=== PATIENT | male | born 1990 | race Caucasian/White ===

== ENCOUNTER 2025-01-04 18:41 | Inpatient (IN) | payer BC, SELFPAY ==
[2025-01-04 18:47] VITALS: BP 127/81; PULSE 154; RESP 14; TEMP 36.9; O2SAT 98; BMI 22.5
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
[2025-01-04] MEDS: diphenhydrAMINE HCL 50 MG/ML VIAL IM (19:00)
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
--- NOTE | 2025-01-04 19:06 | PC.NURSE ---
patient began to escalate, yelling at security, swearing. patient began to speak to instrument processing tech who told patient that his behavior needed to stop and he could leave sooner, patient then became irritated with RN and security about what tech said when patient was told he needed to be medically cleared prior to speaking to crisis. patient then educated that RN should be giving patient direct information regarding plan of care, patient then agreeable and asked for everyone in the room to get in trouble and be sued. patient then escalated and needed four point restraints and IM medications per NOV. patient IM'd by this RN and Mell. patient remains to be uncooperative at this time, sexually inappropriate with staff. has jose antonio 1:1
--- NOTE | 2025-01-04 19:13 | PC.NURSE ---
patient stated to this RN that he was pulled over and brought here 2 hours prior, patient has no prior record of being at this hospital.
[2025-01-04] MEDS: Nicotine 21 MG PATCH.TD24 TRANSDERMA (19:33)
--- NOTE | 2025-01-04 19:43 | PC.NURSE ---
this rn assumed care of pt at 1900, pt being combative, swearing at staff, being inappropriate towards staff making statement whats stopping me from leaving here and killing myself . pt placed in restraints and given IM medications. pt given nicotine patch per request. pt changed into green, sitter remains at bedside.
--- NOTE | 2025-01-04 19:50 | PC.NURSE ---
all 4 point restraints removed at this time. pt appears to be sleeping, respirations even and unlabored.
[2025-01-04] MEDS: LORazepam 2 MG/ML VIAL 4 MG IM (19:54)
[2025-01-04] MEDS: Haloperidol Lactate 5 MG/ML VIAL 10 MG IM (19:54)
--- NOTE | 2025-01-04 19:56 | PC.NURSE ---
pt only received 2mg ativan and 5mg of haldol, per pharmacy doc in nov at this time.
[2025-01-04 20:43] VITALS: BP 96/46; PULSE 89; RESP 18; O2SAT 94
[2025-01-04 21:02] LABS: MANUAL DIFF FLAG NO
[2025-01-04 21:03] LABS: Basophils Percent Auto 0.5 % (0-2); Eosinophils Percent Auto 0.2 % (0-4); Hemoglobin 14.4 g/dl (14.0-18.0); Imm Gran Abs Auto 0.02 X10*3/uL (0.00-0.03); Imm Gran Pct Auto 0.2 % (0.0-0.4); Lymphocytes Absolute Auto 1.9 X10*3/uL (1.2-4.9); Lymphocytes Percent Auto 22.7 % (20-40); Mean Corpuscular HGB Conc 35.1 g/dl (31.0-36.0); Mean Corpuscular Volume 82.5 fL (80.0-98.0); Mean Platelet Volume 9.3 fL (9.4-12.4); Monocytes Absolute Auto 0.7 X10*3/uL (0.1-1.2); Monocytes Percent Auto 7.9 % (2-11); Neutrophils Absolute Auto 5.8 x10*3/uL (2.0-8.3); Neutrophils Percent Auto 68.5 % (45-73); Platelet Count 250 X10*3/uL (160-400); Red Blood Count 4.97 X10*6/uL (4.60-5.80); Red Cell Distribution Width 12.6 % (11.0-16.0); White Blood Count 8.5 X10*3/uL (4.8-10.8)
--- NOTE | 2025-01-04 21:13 | PC.NURSE ---
pt remains resting in stretcher, respirations even and unlabored.
[2025-01-04 21:17] LABS: Alanine Aminotransferase 23 U/L (0-40); Albumin Level 4.6 g/dL (3.5-5.0); Alkaline Phosphatase 40 U/L (39-117); Anion Gap 13 (12-20); Aspartate Amino Transferase 31 U/L (5-37); Bilirubin Total 0.7 mg/dL (0.0-1.0); Blood Urea Nitrogen 11 mg/dL (9-16); Carbon Dioxide 27 mmol/L (22-29); Chloride 110 mmol/L (96-108); Creatinine Clr Calc Pharmacy 120.5; Estimated Glomerular Filt Rate > 60; Ethanol 222 mg/dL; Glucose Random 94 mg/dL (60-115); Potassium 4.2 mmol/L (3.3-5.1); Sodium 146 mmol/L (135-145); Total Protein 7.1 g/dL (6.5-8.0)
--- NOTE | 2025-01-04 23:50 | PC.NURSE ---
pt awake and ambulatory to bathroom at this time, attempting to obtain urine sample.
[2025-01-05 00:11] LABS: Amphetamine Screen Urine Not Detected (Not Detect); Barbiturates, Urine Not Detected (Not Detect); Benzodiazepines Screen Urine Not Detected (Not Detect); Buprenorphine Scr Not Detected (Not Detect); Cannabinoid Screen Urine POSITIVE (Not Detect); Cocaine Screen Urine Not Detected (Not Detect); Fentanyl, urine Not Detected (Not Detect); Methadone Screen, Urine Not Detected (Not Detect); Opiate Screen Urine Not Detected (Not Detect); Oxycodone Screen Urine Not Detected (Not Detect); Phencyclidine Screen Urine Not Detected (Not Detect)
[2025-01-05 05:23] VITALS: BP 116/71; PULSE 83; RESP 16; TEMP 36.9; O2SAT 98
--- NOTE | 2025-01-05 05:42 | PC.NURSE ---
pt belongings list not completed, pt belongings found in [facility], pt list made based off what was found in bags in [facility].
--- NOTE | 2025-01-05 08:41 | PC.NURSE ---
patient awake, provided with breakfast. ambulated to the bathroom independently with steady gait. patient states he does not remember any events from last night and that he has been having increased stress at home. awaiting care team consult, patient currently denies si/hi. patient observer remains in place for patient safety.
--- NOTE | 2025-01-05 08:50 | PC.NURSE ---
CARE team at bedside
--- NOTE | 2025-01-05 09:24 | PC.NURSE ---
pts Eddi cam
[2025-01-05] MEDS: Nicotine 21 MG PATCH.TD24 TRANSDERMA (09:51)
[2025-01-05] MEDS: LORazepam 1 MG TABLET PO ×3 (10:13→19:39)
[2025-01-05] MEDS: Nicotine Polacrilex 2 MG GUM BUCCAL ×2 (15:16→19:42)
[2025-01-05 15:27] VITALS: BP 132/73; PULSE 73; RESP 16; TEMP 37; O2SAT 97
--- NOTE | 2025-01-05 17:41 | MHC.EDTECH ---
This tech removed lunch tray from patients room. This tech noticed patient did not eat lunch, patient also did not eat breakfast. This tech made RN aware patient hasn't eaten today.
--- NOTE | 2025-01-05 17:45 | PHA.MEDREC ---
Pharmacy Consult ? Medication Reconciliation Pharmacy has completed the medication reconciliation. Reviewed med rec done by nursing.
--- NOTE | 2025-01-06 | ECG_ITS ---
Test Reason : r/o prolonged qt Blood Pressure : */* mmHG Vent. Rate : 78 BPM Atrial Rate : 78 BPM P-R Int : 164 ms QRS Dur : 96 ms QT Int : 362 ms P-R-T Axes : 54 77 57 degrees QTcB Int : 412 ms Normal sinus rhythm Normal ECG No previous ECGs available Referred By: Guido Becerra Electronically Signed By: Christian Juarez
[2025-01-06] MEDS: LORazepam 1 MG TABLET PO ×3 (03:22→16:30)
[2025-01-06 04:30] VITALS: BP 140/93; PULSE 59; RESP 16; TEMP 36.9; O2SAT 100
--- NOTE | 2025-01-06 04:56 | PC.NURSE ---
Patient slept through the night, reports anxiety Ativan 1 mg PO administered x2 with + effect, meds and meals compliant, 15 minutes safety check, no behavior and safety concerns at this time, disposition by care team is section 12 inpatient bed search, will continue to monitor
[2025-01-06] MEDS: Nicotine 21 MG PATCH.TD24 TRANSDERMA (05:53)
--- NOTE | 2025-01-06 07:09 | PC.NURSE ---
Assumed care of pt at 0645. Pt appears to be sleeping. Respirations even and unlabored. Continue plan of care for inpatient bed search.
[2025-01-06] MEDS: Nicotine Polacrilex 2 MG GUM BUCCAL ×2 (07:56→12:20)
[2025-01-06 08:26] VITALS: BP 148/100; PULSE 80; RESP 18; TEMP 36.8; O2SAT 98
[2025-01-06] MEDS: OLANZapine 10 MG TABLET PO (09:16)
--- NOTE | 2025-01-06 12:05 | PC.NURSE ---
Addendum entered by Elva Mariscal RN 01/06/25 12:07: Pt self redirecting at this time taking shower Original Note: Pt is starting to get agitated
[2025-01-06 13:13] LABS: Appearance Urine Clear; Color Urine Dark Yellow; Glucose Urine UA Negative (Negative); Leukocyte Esterase Urine Trace (Negative); Nitrite Urine Negative (Negative); Specific Gravity - Urine >= 1.030 (1.005-1.025); UMIC TRIGGER UACC YES; Urine Blood Negative (Negative); Urine Ketones 40 mg/dL (Negative); Urine Protein 30 (1+) mg/dL (Neg-Trace)
[2025-01-06 14:14] LABS: Bacteria Urine None Seen (None Seen); Hyaline Casts Urine 0-2 /LPF (0-2); RBC Urine 0-2 /HPF (0-2); Squamous Epithelial Cell Urine 0-2 /HPF (0-2); WBC Urine 0-5 /HPF (0-5)
[2025-01-06 14:15] VITALS: BP 128/81; PULSE 91; TEMP 36.7; O2SAT 98; BMI 23.2
[2025-01-06] MEDS: Nicotine Polacrilex 2 MG GUM 4 MG BUCCAL ×2 (15:55→18:41)
[2025-01-06] MEDS: hydrOXYzine HCL 25 MG TABLET PO (15:55)
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
[2025-01-06 20:12] VITALS: BP 126/80; PULSE 90; TEMP 36.5; O2SAT 96
[2025-01-06] MEDS: traZODone HCL 50 MG TABLET PO (21:20)
[2025-01-07] MEDS: Nicotine Polacrilex 2 MG GUM 4 MG BUCCAL ×6 (07:40→20:58)
[2025-01-07 07:51] VITALS: BP 131/81; PULSE 77; RESP 18; TEMP 36.9; O2SAT 94
[2025-01-07] MEDS: Thiamine HCL 100 MG TABLET PO (08:38)
[2025-01-07] MEDS: Folic Acid 1 MG TABLET PO (08:38)
[2025-01-07] MEDS: Multivitamin TABLET 1 TAB PO (08:38)
[2025-01-07] MEDS: Nicotine 21 MG PATCH.TD24 TRANSDERMA (08:38)
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
[2025-01-07] MEDS: hydrOXYzine HCL 25 MG TABLET PO ×2 (09:49→16:42)
[2025-01-07] MEDS: Escitalopram Oxalate 10 MG TABLET PO (11:33)
[2025-01-07 19:57] VITALS: BP 141/86; PULSE 84; TEMP 37.2; O2SAT 96
[2025-01-08] MEDS: Nicotine Polacrilex 2 MG GUM 4 MG BUCCAL ×3 (06:34→11:36)
[2025-01-08] MEDS: hydrOXYzine HCL 25 MG TABLET PO (06:34)
[2025-01-08 08:00] VITALS: BP 131/94; PULSE 67; RESP 18; TEMP 36.8; O2SAT 98
[2025-01-08] MEDS: Thiamine HCL 100 MG TABLET PO (08:11)
[2025-01-08] MEDS: Multivitamin TABLET 1 TAB PO (08:11)
[2025-01-08] MEDS: Nicotine 21 MG PATCH.TD24 TRANSDERMA (08:11)
[2025-01-08] MEDS: Folic Acid 1 MG TABLET PO (08:11)
[2025-01-08] MEDS: Escitalopram Oxalate 10 MG TABLET PO (08:11)
--- NOTE | 2025-01-08 10:02 | HO.PSYCHPN ---
Subjective Subjective Date of Service: 01/08/25 Reason For Visit: alcohol use disorder, depression with SI; aggressi Interim History: Pt denies SI,HI,AH,VH. He is preparing for discharge, making arrangements with [facility] and with [place], [place] for out pt individual and couples counseling. Medication Compliance: Yes Side effects from medications: No Attending Groups: Yes Review of Systems Acute medical concerns: No Review of Systems Review of Systems Denies Mental Status Exam Mental Status Exam Patient Appearance: Appropriate Patient Orientation: Person, Place, Time and Situation Level of Consciousness: Alert Patient Behavior: Talkative and Good Eye Contact Mood Description: Appropriate Affect Description: Appropriate Patient Cognition Impaired: No Ability to Follow Directions: Good Speech Pattern: Spontaneous Speech Memory Description: Intact and Episodic Impaired Hallucinations: None Delusions: Not Present Thought Process: Goal Oriented Thought Content: positive for Goal Oriented Depressive Symptoms: Thoughts of /Suicide (denies) Judgement: Good Diagnostics Vital Signs (24Hr): Vital Signs - 24 hr 01/07/25 19:57 01/08/25 08:00 Temperature 98.9 F 98.3 F Pulse Rate 84 67 Respiratory Rate 18 Blood Pressure 141/86 H 131/94 H Pulse Oximetry 96 98 Oxygen Delivery Method Room Air Room Air BMI result Body Mass Index 23.2 Labs 01/04/25 20:57 01/04/25 20:57 Labs: Laboratory Results - last 48 hr 01/06/25 13:03 Urine Color Dark Yellow Urine Appearance Clear Urine pH 6.0 Ur Specific [place] >= 1.030 H Urine Protein 30 (1+) H Urine Glucose (UA) Negative Urine Ketones 40 Urine Blood Negative Urine Nitrite Negative Ur Leukocyte Esterase Trace H Urine RBC 0-2 Urine WBC 0-5 Ur Squamous Epith Cells 0-2 Urine Bacteria None Seen Hyaline Casts 0-2 Medications Medications Current Medications Acetaminophen (Acetaminophen 325 Mg Tablet) 650 mg PO Q6H PRN PRN Reason: Headache/Pain, Scale 1-10 Al Hydroxide/Mg Hydroxide (Magnesium Hydrox/Alum Hydrox 30 Ml Oral.Susp) 30 ml PO Q6H PRN PRN Reason: Heartburn/Nausea Escitalopram Oxalate (Escitalopram Oxalate 10 Mg Tablet) 10 mg PO DAILY [facility] Last Admin: 01/08/25 08:11 Dose: 10 mg Folic Acid (Folic Acid 1 Mg Tablet) 1 mg PO DAILY [facility] Last Admin: 01/08/25 08:11 Dose: 1 mg Hydroxyzine HCl (Hydroxyzine Hcl 25 Mg Tablet) 25 mg PO Q6H PRN PRN Reason: mild anxiety Last Admin: 01/08/25 06:34 Dose: 25 mg Lorazepam (Lorazepam 1 Mg Tablet) 1 mg PO Q2H PRN PRN Reason: ciwa 6-10 Last Admin: 01/06/25 16:30 Dose: 1 mg Lorazepam (Lorazepam 1 Mg Tablet) 2 mg PO Q2H PRN PRN Reason: ciwa 11-15 Lorazepam (Lorazepam 1 Mg Tablet) 3 mg PO Q2H PRN PRN Reason: ciwa 16+ Magnesium Hydroxide (Milk Of Magnesia 30 Ml Oral.Susp) 30 ml PO DAILY PRN PRN Reason: Constipation Multivitamins/Vitamin C (Multivitamin Tablet) 1 tab PO DAILY [facility] Last Admin: 01/08/25 08:11 Dose: 1 tab Nicotine (Nicotine 21 Mg Patch.Td24) 21 mg TRANSDERMA DAILY [facility] Last Admin: 01/08/25 08:11 Dose: 21 mg Nicotine Polacrilex (Nicotine Polacrilex 2 Mg Gum) 4 mg BUCCAL Q2H PRN PRN Reason: Nicotine Cravings Last Admin: 01/08/25 08:55 Dose: 4 mg Olanzapine (Olanzapine 5 Mg Tablet) 5 mg PO Q4H PRN PRN Reason: agitation Thiamine HCl (Thiamine Hcl 100 Mg Tablet) 100 mg PO DAILY [facility] Last Admin: 01/08/25 08:11 Dose: 100 mg Trazodone HCl (Trazodone Hcl 50 Mg Tablet) 50 mg PO BEDTIME MRX1 PRN PRN Reason: Insomnia Last Admin: 01/06/25 21:20 Dose: 50 mg Allergies Allergies Allergy/AdvReac Type Severity Reaction Status Date / Time No Known Allergies Allergy Verified 01/04/25 18:50 Assessment & Plan Assessment & Plan (1) Depressive disorder: Status: Acute Code(s): F32.A - Depression, unspecified (2) Alcohol use disorder: Status: Acute Code(s): F10.90 - Alcohol use, unspecified, uncomplicated Plan Admit, CV, 15 minute checks Three day notice filed Diagnostics as needed Encourage full milieu Lexapro 10 mg daily Collateral contact completed-met with pt and his mother today Discharge planning-pt wanting referrals for therapy, medications, couples therapy. 01/08 Discharge today. Reason for continued inpatient stay Substantial Risk for: stable for discharge Time Spent With Patient Time: Total time managing care of this patient today ____ minutes.
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
== END 2025-01-08 14:15 | disposition home or self-care (01) | DRG 751 ==
LOC: HO.ED 01-06 14:09 → HO.PM5 01-06 14:18
PROVIDERS: Emergency Medicine Emergency Medical Services; Admitting Provider Clinical Nurse Specialist Psychiatric/Mental Health, Adult; Emergency Provider Emergency Medicine; Visit Provider Clinical Nurse Specialist Psychiatric/Mental Health, Adult
DX: F33.9 Major depressive disorder, recurrent, unspecified (principal); R45.851 Suicidal ideations; F10.929 Alcohol use, unspecified with intoxication, unspecified; F17.210 Nicotine dependence, cigarettes, uncomplicated; Y90.7 Blood alcohol level of 200-239 mg/100 ml; Z71.6 Tobacco abuse counseling; Z79.899 Other long term (current) drug therapy
CPT/HCPCS: 36415; 80053; 80307; 81001; 85025; 93005; 99285; J1200; J1630; J2060; S9485

== ENCOUNTER → 2025-01-06 09:31 | Outpatient (BNV) | payer BC, SELFPAY | PROVIDERS: Emergency Provider Emergency Medicine; Visit Provider Internal Medicine Cardiovascular Disease | DX: Z13.6 Encounter for screening for cardiovascular disorders (principal) | CPT/HCPCS: 93010 ==

== ENCOUNTER → 2025-01-06 13:41 | Outpatient (BNV) | payer BC, SELFPAY | PROVIDERS: Admitting Provider Clinical Nurse Specialist Psychiatric/Mental Health, Adult; Emergency Provider Emergency Medicine; Visit Provider Clinical Nurse Specialist Psychiatric/Mental Health, Adult | DX: F32.2 Major depressive disorder, single episode, severe without psychotic features (principal); F10.90 Alcohol use, unspecified, uncomplicated | CPT/HCPCS: 90792; 99238; 99499 ==